=== PATIENT | female | born 1965 | race Caucasian/White ===

== ENCOUNTER → 2016-11-17 | Outpatient (CLI) | payer OTHER ==
[~2016-11-17] MED LIST: CALCIUM 500 +1 EAC5 PO; DOXY 100100 MG; HYDROCODON-ACE1 EACH PO; IBUPROFEN 200200 M1 PO; IBUPROFEN 600600 M1 PO; KEFLEX500 MG PO; MEDROLDOSEPACK PO; MOBIC7.5 MG PO; MULTIVITAMINS1 EAC7 PO; NORCO 5-325 TA1 EACH PO; PROBIOTIC1 EAC1 PO; VIBRAMYCIN 100100 M2 PO; VITAMINC500 PO
== END ==
LOC: RAD 13:55
DX: Z12.31 Encounter for screening mammogram for malignant neoplasm of breast (principal)

== ENCOUNTER → 2017-12-12 | Outpatient (CLI) | payer OTHER | LOC: MRI 06:42 | DX: H53.9 Unspecified visual disturbance (principal); K64.8 Other hemorrhoids ==

== ENCOUNTER 2020-01-16 11:40 | Emergency (ER) | payer OTHER ==
[~2020-01-16] VITALS: Ht 177.8 cm; Wt 81.7 kg
[2020-01-16] MEDS ORDERED: PROMETH-CODEIN 65 ML PO (13:27)
[2020-01-16 13:51] VITALS: BP 115/62
--- NOTE | 2020-01-16 16:10 | EKG ---
[facility] Lisa Rodriguez [place] [address] ELECTROCARDIOGRAM REPORT Name: SANG CHILD Room #: DEP [facility]#: [id number] Admission: 01/16/20 Attend Phys: Discharge: 01/16/20 Date of : 67 Report #: [id number] THIS REPORT FOR: cc: Fredi Alejandre MD, Rene P. MD Couchonnal, Luis F. 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
== END 2020-01-16 13:51 | disposition home or self-care (01) ==
LOC: ER 11:40
DX: R50.9 Fever, unspecified (principal); Z20.828 Contact with and (suspected) exposure to other viral communicable diseases; Z88.1 Allergy status to other antibiotic agents; Z88.0 Allergy status to penicillin; Z88.2 Allergy status to sulfonamides; Z91.013 Allergy to seafood; Z79.899 Other long term (current) drug therapy; Z98.890 Other specified postprocedural states

== ENCOUNTER → 2020-02-12 | Outpatient (CLI) | payer OTHER ==
[~2020-02-12] MED LIST changes: +PROMETH-CODEIN 65 ML PO
== END ==
LOC: LAB 02-10 09:36
PROVIDERS: ATTEND Family Medicine
DX: U07.1 COVID-19 (principal)

== ENCOUNTER 2020-02-24 15:54 | Emergency (ER) | payer OTHER ==
[~2020-02-24] VITALS: Ht 177.8 cm; Wt 77.1 kg
[2020-02-24 16:44] LABS: ABSOLUTE NEUTROPHILS 2.8 thou/uL (1.4-8.2); BASOPHILS 1.3 % (0.0-2.0); EOSINOPHILS 2.6 % (0.0-3.0); HEMATOCRIT 39.8 % (37.0-47.0); HEMOGLOBIN 13.5 gm/dL (12.0-15.0); LYMPHOCYTES 31.5 % (24.0-44.0); MCH 28.5 pg (26.0-34.0); MCHC 33.8 g/dL (28.0-37.0); MCV 84.2 fL (80.0-100.0); PLATELET COUNT 267 thou/uL (150-400); POLYS 56.6 % (36.0-66.0); RBC 4.73 mil/uL (4.20-5.00); RDW 14.2 % (10.5-14.5); WBC 4.9 thou/uL (4.0-11.0)
[2020-02-24 16:59] LABS: ANION GAP 7 mmol/L (7-16); BUN 10 mg/dL (7-18); CALCIUM 8.7 mg/dL (8.5-10.1); CHLORIDE 102 mmol/L (98-107); CO2 28 mmol/L (21-32); CREATININE 0.7 mg/dL (0.6-1.0); GLUCOSE 94 mg/dL (74-106); POTASSIUM 4.5 mmol/L (3.5-5.1); SODIUM 137 mmol/L (136-145)
[2020-02-24 17:13] LABS: ALBUMIN 3.7 g/dL (3.4-5.0); MAGNESIUM 2.1 mg/dL (1.8-2.4); SGOT 20 U/L (15-37); SGPT 24 U/L (30-65); TOTAL BILIRUBIN 0.4 mg/dL (0.2-1.0); TOTAL PROTEIN 6.4 g/dL (6.4-8.2); TROPONIN-I <0.06 ng/mL (<0.06)
[2020-02-24 18:39] VITALS: BP 114/66
--- NOTE | 2020-02-25 07:54 | EKG ---
[facility] [place] [address] ELECTROCARDIOGRAM REPORT Name: SANG CHILD Room #: DEP [facility]#: [id number] Admission: 02/24/20 Attend Phys: Discharge: 02/24/20 Date of : 67 Report #: [id number] THIS REPORT FOR: cc: Fredi Alejandre MD, Rene P. MD Lundgren, Craig H. 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
== END 2020-02-24 18:39 | disposition home or self-care (01) ==
LOC: ER 15:54
PROVIDERS: Physician Assistant
DX: R06.00 Dyspnea, unspecified (principal); M79.604 Pain in right leg; M79.605 Pain in left leg; Z79.899 Other long term (current) drug therapy; Z88.0 Allergy status to penicillin; Z88.1 Allergy status to other antibiotic agents; Z91.013 Allergy to seafood; Z20.828 Contact with and (suspected) exposure to other viral communicable diseases

== ENCOUNTER 2020-05-27 09:11 | Emergency (ER) | payer OTHER ==
[~2020-05-27] VITALS: Ht 177.8 cm; Wt 86.2 kg
[2020-05-27 09:35] LABS: ABSOLUTE NEUTROPHILS 6.9 thou/uL (1.4-8.2); BASOPHILS 0.6 % (0.0-2.0); EOSINOPHILS 0.4 % (0.0-3.0); HEMATOCRIT 35.9 % (37.0-47.0); HEMOGLOBIN 11.8 gm/dL (12.0-15.0); LYMPHOCYTES 13.2 % (24.0-44.0); MCHC 32.9 g/dL (28.0-37.0); MCV 82.1 fL (80.0-100.0); MONOCYTES 7.7 % (1.0-8.0); PLATELET COUNT 286 thou/uL (150-400); POLYS 78.1 % (36.0-66.0); RBC 4.37 mil/uL (4.20-5.00); WBC 8.9 thou/uL (4.0-11.0)
[2020-05-27 10:52] LABS: ANION GAP 13 mmol/L (7-16); BUN 9 mg/dL (7-18); CALCIUM 8.7 mg/dL (8.5-10.1); CHLORIDE 104 mmol/L (98-107); CO2 23 mmol/L (21-32); CREATININE 0.6 mg/dL (0.6-1.0); GLUCOSE 116 mg/dL (74-106); POTASSIUM 3.9 mmol/L (3.5-5.1); SODIUM 140 mmol/L (136-145)
[2020-05-27 11:00] LABS: URINE BILIRUBIN NEGATIVE (Negative); URINE BLOOD NEGATIVE (Negative); URINE CLARITY CLEAR; URINE COLOR YELLOW; URINE GLUCOSE-RANDOM* NEGATIVE (Negative); URINE KETONES NEGATIVE (Negative); URINE LEUKOCYTES-REFLEX NEGATIVE (Negative); URINE NITRITE-REFLEX NEGATIVE (Negative); URINE PROTEIN (DIPSTICK) NEGATIVE (Negative); URINE UROBILINOGEN 0.2 E.U./dl (0.2-1.0)
[2020-05-27 11:04] LABS: ALBUMIN 3.5 g/dL (3.4-5.0); LIPASE 111 U/L (73-393); SGOT 15 U/L (15-37); SGPT 16 U/L (30-65); TOTAL BILIRUBIN 0.3 mg/dL (0.2-1.0); TOTAL PROTEIN 6.9 g/dL (6.4-8.2); TROPONIN-I <0.06 ng/mL (<0.06)
--- NOTE | 2020-05-27 12:07 | EKG ---
[facility] [place] [address] ELECTROCARDIOGRAM REPORT Name: SANG CHILD Room #: REG [facility]#: [id number] Admission: 05/27/20 Attend Phys: Discharge: Date of : 67 Report #: [id number] THIS REPORT FOR: cc: Fredi Alejandre MD, Rene P. MD Santiago, Patrick MD [facility] ~ THIS REPORT FOR: //name// 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
[2020-05-27] MEDS ORDERED: CIPROFLOXACIN500 M1 PO ×2 (12:24→13:06)
[2020-05-27] MEDS ORDERED: METRONIDAZOLE500 M4 PO ×2 (12:24→13:06)
[2020-05-27 13:08] VITALS: BP 110/57
== END 2020-05-27 13:17 | disposition home or self-care (01) ==
LOC: ER 09:11
PROVIDERS: Emergency Medicine
DX: K57.32 Diverticulitis of large intestine without perforation or abscess without bleeding (principal); Z79.899 Other long term (current) drug therapy; Z88.0 Allergy status to penicillin; Z88.2 Allergy status to sulfonamides; Z88.1 Allergy status to other antibiotic agents; Z91.013 Allergy to seafood

== ENCOUNTER → 2020-06-23 | Outpatient (CLI) | payer OTHER ==
[~2020-06-23] MED LIST changes: +CIPROFLOXACIN500 M1 PO; +METRONIDAZOLE500 M4 PO
== END ==
LOC: RAD 10:47
PROVIDERS: ATTEND Obstetrics & Gynecology
DX: Z12.31 Encounter for screening mammogram for malignant neoplasm of breast (principal)

== ENCOUNTER → 2020-07-29 | Outpatient (CLI) | payer OTHER | LOC: SJCVCIMAG 07-22 06:42 | PROVIDERS: ATTEND Internal Medicine | DX: R00.2 Palpitations (principal); R53.83 Other fatigue; U07.1 COVID-19 ==

== ENCOUNTER 2020-08-22 13:36 | Emergency (ER) | payer OTHER ==
[~2020-08-22] VITALS: Ht 177.8 cm; Wt 86.2 kg
[2020-08-22 14:40] LABS: BASOPHILS 1.1 % (0.0-2.0); HEMATOCRIT 41.3 % (37.0-47.0); HEMOGLOBIN 13.2 gm/dL (12.0-15.0); LYMPHOCYTES 30.7 % (24.0-44.0); MCH 26.2 pg (26.0-34.0); MCV 81.9 fL (80.0-100.0); MONOCYTES 7.2 % (1.0-8.0); PLATELET COUNT 279 thou/uL (150-400); RBC 5.05 mil/uL (4.20-5.00); RDW 16.5 % (10.5-14.5)
[2020-08-22 14:47] LABS: ANION GAP 5 mmol/L (7-16); BUN 12 mg/dL (7-18); CALCIUM 9.4 mg/dL (8.5-10.1); CHLORIDE 104 mmol/L (98-107); CO2 29 mmol/L (21-32); CREATININE 0.9 mg/dL (0.6-1.0); GLUCOSE 101 mg/dL (74-106); POTASSIUM 3.8 mmol/L (3.5-5.1); SODIUM 138 mmol/L (136-145)
[2020-08-22 14:54] LABS: APTT 23.2 Seconds (24.5-32.8); PROTIME 9.5 Seconds (9.3-11.4)
[2020-08-22 14:56] LABS: TROPONIN-I <0.06 ng/mL (<0.06)
[2020-08-22 16:48] VITALS: BP 102/69
--- NOTE | 2020-08-24 07:32 | EKG ---
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
== END 2020-08-22 16:48 | disposition home or self-care (01) ==
LOC: ER 13:36
PROVIDERS: Nurse Practitioner
DX: R06.00 Dyspnea, unspecified (principal); Z79.899 Other long term (current) drug therapy; Z88.0 Allergy status to penicillin; Z88.1 Allergy status to other antibiotic agents; Z88.2 Allergy status to sulfonamides; Z91.013 Allergy to seafood

== ENCOUNTER → 2021-05-19 | Outpatient (CLI) | payer OTHER ==
[~2021-05-19] MED LIST changes: +CURCUMIN1 GM PO; +OMEPRAZOLE 20 M20 M1 PO; +TYLENOL EXTRA500 MG PO
== END ==
LOC: LAB 05:56
PROVIDERS: ATTEND Student in an Organized Health Care Education/Training Program
DX: Z01.812 Encounter for preprocedural laboratory examination (principal); Z20.822 Contact with and (suspected) exposure to COVID-19

== ENCOUNTER → 2021-05-21 | Outpatient (CLI) | payer OTHER ==
[~2021-05-21] VITALS: Ht 177.8 cm; Wt 86.2 kg
--- NOTE | 2021-05-26 10:08 | PATH ---
[facility] [address] [place] [address] PATHOLOGY RPT PROCEDURE Name: SYDNEY CHILDALOK Tamayo Room #: REG PETE Guera.#: [id number] Admission: 05/21/21 Date of : 67 Discharge: Report #: [id number] Path Case #: [id number] [facility] Accession Number: [id number] . 01 Material submitted: . PART A: gastrointestinal site - GASTRIC BIOPSY R/O H. PYLORI PART B: colon - RANDOM COLON BIOPSY- R/O MICROSCOPIC COLITIS- INTERMITENT DIARRHEA . 01 Clinical history: . ESOPHAGOGASTRODUODENOSCOPY/COLONOSCOPY DIVERTICULITIS, DIVERTICULOSIS . 02 Diagnosis: A. Gastric mucosa, gastric, biopsy: - Focal mild active chronic gastritis. - H. pylori immunohistochemical stain is negative. . B. Colonic mucosa, random colon, biopsy: - Colonic mucosa with no diagnostic abnormalities. - Negative for microscopic colitis. . (SCA:mml; 05/24/2021) QLM 05/24/2021 1301 Local . 02 Electronically signed: . Marquez Nieto DO, Pathologist NPI- [id number] . 01 Gross description: . A. Received in formalin labeled "Sang Child, gastric BX rule out H. pylori" are multiple cole-brown soft tissue fragments measuring in aggregate 1.0 x 0.4 x 0.1 cm. The specimen is submitted entirely in A1. . B. Received in formalin labeled "Sang Child, random colon BX rule out microscopic colitis" are multiple cole-brown soft tissue fragments measuring in aggregate 1.0 x 0.5 x 0.1 cm. The specimen is submitted entirely in B1. ([facility]; 05/23/2021) [facility] 05/23/2021 1020 Local . 02 Pathologist provided ICD-10: K29.50 . 02 CPT . 509124, 542073, T34513 Specimen Comment: A courtesy copy of this report has been sent to [phone], [phone], [place] [address] PATHOLOGY RPT PROCEDURE Name: DONNELLSANG Tamayo Room #: REG CL Maggy#: [id number] Admission: 05/21/21 Date of : 67 Discharge: Report #: [id number] Path Case #: [id number] Specimen Comment: [id number] Specimen Comment: Report sent to / DR LAMBERT Specimen Comment: A duplicate report has been generated due to demographic updates. Performed at: 01 [facility] [address] [id number] MD Jose Miguel Stroud MD Phone: [phone] Performed at: 02 [facility] [address] [id number] MD Arnie Marte MD Phone: [phone]
--- NOTE | 2021-05-26 16:17 | P ---
[facility] [place] [address] PROCEDURE REPORT Name: SANG CHILD Room #: REG PETE LynneCatarina#: [id number] Admission: 05/21/21 Attend Phys: Alessandro De Anda Discharge: Date of : 67 Report #: [id number] THIS REPORT FOR: cc: Fredi Alejandre MD, Rene P. MD McElhinney, Christian C. MD ~ cc: Fredi Alejandre MD DATE OF SERVICE: 05/21/2021 PROCEDURE PERFORMED: Upper endoscopy with biopsies. HISTORY OF PRESENT ILLNESS: The patient is a 55-year-old female with a history of gastroesophageal reflux disease, had COVID last year, has had intermittent prolonged symptoms including change in bowel habits, increased heartburn symptoms. She denies any dysphagia or odynophagia. PLAN: She is on daily PPI therapy. Plan is for EGD and colonoscopy today. DESCRIPTION OF PROCEDURE: The risks and benefits of the procedure were explained to the patient, those risks including but not limited to bleeding, perforation and the risk of sedation. She understood these risks and gave informed consent. Sedation was given using propofol per Anesthesia. Next, using a standard Olympus upper endoscope, the scope was placed in the patient's mouth and advanced under direct vision through the esophagus, stomach and into the second portion of the duodenum. The larynx was normal in appearance. An inlet patch was noted in the proximal esophagus, otherwise normal. The mid and distal esophagus were normal. The GE junction was normal. Overall, the gastric mucosa was normal. Due to the patient's symptoms, biopsies were obtained to rule out the possibility of H. pylori. The pylorus was normal and patent. The duodenal bulb, first and second portion were all normal. The scope was then withdrawn and the procedure terminated. The patient tolerated the procedure well. IMPRESSION: 1. Small inlet patch, proximal esophagus. 2. Otherwise, normal upper endoscopy. RECOMMENDATIONS: 1. Await biopsy results. 2. Continue daily PPI therapy. 3. We will proceed with colonoscopy next today. [address] [address] PROCEDURE REPORT Name: SANG CHILD Room #: REG Brittany Winter#: [id number] Admission: 05/21/21 Attend Phys: Alessandro De Anda Discharge: Date of : 67 Report #: [id number] Thank you for allowing me to participate in her care. <ELECTRONICALLY SIGNED> By: Alessandro Ann MD 05/26/21 1617 0842 1816 Alessandro Ann MD /nt
--- NOTE | 2021-05-26 16:17 | P ---
[facility] [place] [address] PROCEDURE REPORT Name: SANG CHILD Room #: REG [facility] GueraCatarina#: [id number] Admission: 05/21/21 Attend Phys: Alessandro De Anda Discharge: Date of : 67 Report #: [id number] THIS REPORT FOR: cc: Fredi Alejandre MD, Rene P. MD McElhinney, Christian C. MD ~ cc: Fredi Alejandre MD DATE OF SERVICE: 05/21/2021 PROCEDURE PERFORMED: Colonoscopy with biopsies. HISTORY OF PRESENT ILLNESS: The patient is a 55-year-old female with episode of diverticulitis last June that was her first episode, none since, treated with antibiotics and resolved. She had COVID last year and unfortunately has had prolonged intermittent symptoms including intermittent diarrhea and constipation. She denies any blood in her stools. No family history of colon cancer. DESCRIPTION OF PROCEDURE: The risks and benefits of the procedure were explained to the patient, those risks including but not limited to bleeding, perforation and the risk of sedation. She understood these risks and gave informed consent. Sedation was given using propofol per anesthesia. Next, a digital rectal exam was initially performed, which was normal. Next, using a standard Olympus colonoscope, the scope was placed in the patient's anus and advanced under direct vision to the cecum. The overall prep was excellent. The cecum and ileocecal valve were normal in appearance. The ascending, transverse and descending colon were normal. Random biopsies were obtained to rule out the possibility of microscopic colitis. A few small scattered diverticula were noted in the sigmoid colon. No evidence of inflammation, otherwise normal. The rectal mucosa was normal. On retroflexion, no abnormalities were noted. The scope was then withdrawn and the procedure terminated. The patient tolerated the procedure well. IMPRESSION: 1. Sigmoid diverticulosis. 2. Otherwise, normal colonoscopy. RECOMMENDATIONS: 1. Await biopsy results. 2. Repeat colonoscopy in [address] [address] PROCEDURE REPORT Name: SANG CHILD Room #: [facility] [id number] Admission: 05/21/21 Attend Phys: Alessandro De Anda Discharge: Date of : 67 Report #: [id number] Thank you for allowing me to participate in her care. <ELECTRONICALLY SIGNED> By: Alessandro Ann MD 05/26/21 1617 0900 39 Alessandro Ann MD /nt
== END | disposition home or self-care (01) ==
LOC: GI
PROVIDERS: ATTEND Specialist
DX: K21.9 Gastro-esophageal reflux disease without esophagitis (principal); K57.30 Diverticulosis of large intestine without perforation or abscess without bleeding; K29.50 Unspecified chronic gastritis without bleeding; F32.9 Major depressive disorder, single episode, unspecified; Z98.890 Other specified postprocedural states; Z79.899 Other long term (current) drug therapy; Z88.0 Allergy status to penicillin; Z88.8 Allergy status to other drugs, medicaments and biological substances
CPT/HCPCS: 62110; 62900